=== PATIENT | female | born 1965 | race Caucasian/White ===

== ENCOUNTER 2020-02-24 21:10 | Emergency (ER) | payer OTHER ==
[~2020-02-24] VITALS: Ht 175.3 cm; Wt 63.5 kg
[2020-02-24] MEDS ORDERED: ASPIRIN81 MG PO (21:23)
[2020-02-24] MEDS ORDERED: AMITRIPTYLINE100 MG PO (21:24)
--- NOTE | 2020-02-25 06:25 | EKG ---
[facility] [address] [place], [place] [address] Signed Sinus tachycardia Left bundle branch block Abnormal ECG No previous ECGs available Confirmed by ROBBIE YEUNG MD ([id number]) on 02/25/2020 6:25:40 AM Electronically Signed By: ROBBIE YEUNG MD 02/25/20624 PATIENT NAME: MAHESH KELLY [place] Electrocardiogram DATE OF : 65 PHYSICIAN: ROBBIE YEUNG MD REPORT #: [id number] REPORT IS CONFIDENTIAL AND NOT TO BE RELEASED WITHOUT AUTHORIZATION
== END 2020-02-25 01:15 | disposition home or self-care (01) ==
LOC: ED 21:10
DX: R07.9 Chest pain, unspecified (principal); F17.200 Nicotine dependence, unspecified, uncomplicated; Z88.8 Allergy status to other drugs, medicaments and biological substances; Z79.899 Other long term (current) drug therapy; Z79.82 Long term (current) use of aspirin
CPT/HCPCS: 71045; 71260; 80053; 81001; 83605; 83735; 84484; 85025; 93005; 93010; 96361; 99285-25; J2270; J2405; J7030; Q9967

== ENCOUNTER 2020-04-21 14:56 | Emergency (ER) | payer OTHER ==
[~2020-04-21] VITALS: Ht 175.3 cm; Wt 63.5 kg
--- OUTSIDE RECORDS SUMMARY | ~2020-04-21 | XMS | Encounter Summary ---
Demographics + + + | Address | [address] | | | [place] [address] | + + + | Home Phone | | + + + | Preferred Language | Unknown | + + + | Marital Status | | + + + | Voodoo Affiliation | Unknown | + + + | Race | White | + + + | Ethnic Group | Not or | + + + Author + + + | Author | [facility] | | | and [place] | + + + | Organization | [facility] | | | and [place] | + + + | Address | Unknown | + + + | Phone | Unavailable | + + + Support + + + + + | Name | Relationship | Address | Phone | + + + + + | Shayan Monique | ECON | [place], [place] | | + + + + + Care Team Providers + +------+ + | Care Chef Head Name | Role | Phone | + +------+ + | Alejandra Mcfarland MD | PCP | | + +------+ + Encounter Details +--------+ + + + + | Date | Type | Department | Care Team | Description | +--------+ + + + + | 04/01/ | Abstract | [facility] | Provider, | | | 2019 | | [address] | [address] | | | | | [address] | [address] | | | | | [place], [place] | [place] [address] | | | | | [address] | | | | | | [phone] | | | +--------+ + + + + Social History + + + +--------+------+ | Tobacco Use | Types | Packs/Day | Years | Date | | | | | Used | | + + + +--------+------+ | Current Every Day | Cigarettes | 0.5 | 35 | | | Smoker | | | | | + + + +--------+------+ + +---+---+---+ | Smokeless Tobacco: | | | | | Never Used | | | | + +---+---+---+ + + +---------+ + | Alcohol Use | Drinks/Week | oz/Week | Comments | + + +---------+ + | Yes | | | | + + +---------+ + + + + | Sex Assigned at | Date Recorded | | | | + + + | Not on file | | + + + documented as of this encounter Plan of Treatment +--------+---------+ + + + | Date | Type | Specialty | Care Team | Description | +--------+---------+ + + + | 05/24/ | Office | Neurosurgery | Shayan Varner | | | 2019 | Visit | | MD [address] | | | | | | [address] | | | | | | [place] | | | | | | [id number] | | | | | | | | +--------+---------+ + + + documented as of this encounter Visit Diagnoses Not on filedocumented in this encounter"
--- OUTSIDE RECORDS SUMMARY | ~2020-04-21 | XMS | Encounter Summary ---
Demographics + + + | Address | [address] | | | [place] [address] | + + + | Home Phone | | + + + | Preferred Language | Unknown | + + + | Marital Status | | + + + | Quaker Affiliation | Unknown | + + + | Race | White | + + + | Ethnic Group | Not or | + + + Author + + + | Author | [facility] | | | and [place] | + + + | Organization | [facility] | | | and [place] | + + + | Address | Unknown | + + + | Phone | Unavailable | + + + Support + + + + + | Name | Relationship | Address | Phone | + + + + + | Shayan Monique | ECON | [place] | | + + + + + Care Team Providers + +------+ + | Care Product Designer Name | Role | Phone | + +------+ + | Alejandra Mcfarland MD | PCP | | + +------+ + Reason for Visit + +--------+ + | Reason | Onset | Comments | | | Date | | + +--------+ + | Appointment | 04/19/ | | | | 2020 | | + +--------+ + Encounter Details +--------+ + + + + | Date | Type | Department | Care Team | Description | +--------+ + + + + | 04/19/ | Telephone | [facility] | Shayan Varner | Appointment | | 2019 | | [address] | [address] | | | | | [address] | [address] | | | | | [place], [place] | [place] | | | | | [address] | [address] | | | | | [phone] | | | +--------+ + + + [...] + + documented as of this encounter Miscellaneous Notes Telephone Encounter - Karla Haley - 04/19/2020 11:55 AM PDTLVM requesting a call back to reschedule her appointment on 04/21/20Electronically signed by Karla Haley at 2019 11:56 AM PDTdocumented in this encounter Plan of Treatment +--------+---------+ + [...] [place] | | | | | | [id number] | | | | | | | | +--------+---------+ + + + documented as of this encounter Visit Diagnoses Not on filedocumented in this encounter"
--- OUTSIDE RECORDS SUMMARY | ~2020-04-21 | XMS | Encounter Summary ---
Demographics + + + | Address | [address] | | | [place] [address] | + + + | Home Phone | | + + + | Preferred Language | Unknown | + + + | Marital Status | | + + + | Anabaptism Affiliation | Unknown | + + + | Race | White | + + + | Ethnic Group | Not or | + + + Author + + + | Author | [facility] | | | and [place] | + + + | Organization | [facility] | | | [...] Team Providers + +------+ + | Care Equity Analyst Name | Role | Phone | + +------+ + | Alejandra Mcfarland MD | PCP | | + +------+ + Encounter Details +--------+ + + + + | Date | Type | Department | Care Team | Description | +--------+ + + + + | 03/30/ | Imaging | [facility] | Provider, | | | 2020 | Exam | MED [facility] EXTER[facility] | [address] | | | | | IM[address]ING [address] | | | | | [address] | [place] [address] | | | | | [place] [address] | | | | | | [phone] | | | +--------+ + + + + Social History + +-------+ +--------+------+ | Tobacco Use | Types | Packs/Day | Years | Date | | | | | Used | | + +-------+ +--------+------+ | Never Assessed | | | | | + +-------+ +--------+------+ + + + | Sex Assigned at [...] [place] | | | | | | [address] | | | | | | | | +--------+---------+ + + + documented as of this encounter Procedures + +--------+ + + + | Procedure Name | Priori | Date/Time | Associated Diagnosis | Comments | | | ty | | | | + +--------+ + + + | CT LUMBAR SPINE WO | Routin | 10/13/2019 | | Results for this | | CONTRAST | e | 12:10 AM | | procedure are in the | | | | PST | | results section. | + +--------+ + + + documented in this encounter Results CT Lumbar Spine wo Contrast (10/13/2019 12:10 AM PST) + + | Specimen | + + | | + + + + + | Narrative | Performed At | + + + | External films for comparison only | [facility] | | | | | No results will be in the chart. | | + + + + +---------+ + + | Performing | Address | City/State/Zipcode | Phone Number | | Organization | | | | + +---------+ + + | [facility] | | | | + +---------+ + + documented in this encounter Visit Diagnoses Not on filedocumented in this encounter"
--- OUTSIDE RECORDS SUMMARY | ~2020-04-21 | XMS | Encounter Summary ---
Demographics + + + | Address | [address] | | | [place] [address] | + + + | Home Phone | | + + + | Preferred Language | Unknown | + + + | Marital Status | | + + + | Islam Affiliation | Unknown | + + + | Race | White | + + + | Ethnic Group | Not or | + + + Author + + + | Author | [facility] | | | and [place] | + + + | Organization | [facility] | | | and [...] Team Providers + +------+ + | Care Vacuum Tester Cans Name | Role | Phone | + [...] | MED CTR EXTERNAL | [address] | | | | | IMAGING [address] | | | | | [address] | [place] [address] | | | | | [place] [address] | | | | | | [phone] | | | +--------+ + + + [...] [place] | | | | | | [address] | | | | | | | | +--------+---------+ + + + documented as of this encounter Procedures + +--------+ + + + | Procedure Name | Priori | Date/Time | Associated Diagnosis | Comments | | | ty | | | | + +--------+ + + + | CT THORACIC SPINE WO | Routin | 10/13/2019 | | Results for this | | CONTRAST | e | 12:05 AM | | procedure are in the | | | | PST | | results section. | + +--------+ + + + documented in this encounter Results CT Thoracic Spine wo Contrast (10/13/2019 12:05 AM PST) + + | Specimen | [...]
--- OUTSIDE RECORDS SUMMARY | ~2020-04-21 | XMS | Encounter Summary ---
Demographics + + + | Address | [address] | | | [place] [address] | + + + | Home Phone | | + + + | Preferred Language | Unknown | + + + | Marital Status | | + + + | Hindu Affiliation | Unknown | + + + | Race | White | + + + | Ethnic Group | Not or | + + + Author + + + | Author | [facility] | | | and [place] | + + + | Organization | [facility] | | | [...] Team Providers + +------+ + | Care Metal Spraying Machine Operator Name | Role | Phone | + +------+ + | Alejandra Mcfarland MD | PCP | | + +------+ + Encounter Details +--------+ + + + + | Date | Type | Department | Care Team | Description | +--------+ + + + + | 03/29/ | Imaging | [facility] | Provider, | | | 2020 | Exam | MED CTR EXTERNAL | [address] | | | | | IM[address]ING [address] | | | | | [address] | [place] [address] | | | | | [place] [address] | | | | | | [phone] | | | +--------+ + + + [...] [place] | | | | | | [address] | | | | | | | | +--------+---------+ + + + documented as of this encounter Procedures + +--------+ + + + | Procedure Name | Priori | Date/Time | Associated Diagnosis | Comments | | | ty | | | | + +--------+ + + + | XR LUMBAR SPINE 2 OR | Routin | 03/15/2020 | | Results for this | | 3 VW | e | 12:00 AM | | procedure are in the | | | | PDT | | results section. | + +--------+ + + + documented in this encounter Results XR Lumbar Spine 2 or 3 Vw (03/15/2020 12:00 AM PDT) + + | Specimen | + + [...]
--- OUTSIDE RECORDS SUMMARY | ~2020-04-21 | XMS | Encounter Summary ---
Demographics + + + | Address | [address] | | | [place] [address] | + + + | Home Phone | | + + + | Preferred Language | Unknown | + + + | Marital Status | | + + + | Synagogue Affiliation | Unknown | + + + | Race | White | + + + | Ethnic Group | Not or | + + + Author + + + | Author | [facility] | | | and [place] | + + + | Organization | [facility] | | | [...] Team Providers + +------+ + | Care Gas Derrick Operator Name | Role | Phone | [...] | MED CTR EXTERNAL | [address] | | | | | IMAGING [address] | | | | | [address] | [place] [address] | | | | | [place] [address] | | | | | | [phone] | | | +--------+ + + + [...] [place] | | | | | | [address] | | | | | | | | +--------+---------+ + + + documented as of this encounter Procedures + +--------+ + + + | Procedure Name | Priori | Date/Time | Associated Diagnosis | Comments | | | ty | | | | + +--------+ + + + | CT PELVIS WO | Routin | 10/13/2019 | | Results for this | | CONTRAST | e | 12:15 AM | | procedure are in the | | | | PST | | results section. | + +--------+ + + + documented in this encounter Results CT Pelvis wo Contrast (10/13/2019 12:15 AM PST) + + | Specimen | [...]
--- OUTSIDE RECORDS SUMMARY | ~2020-04-21 | XMS | Clinical Summary ---
Demographics + + + | Address | [address] [place] [address] B | | | [place] [address] | + + + | Home Phone | | + + + | Preferred Language | Unknown | + + + | Marital Status | | + + + | Orthodox Affiliation | Unknown | + + + | Race | White | + + + | Ethnic Group | Not or | + + + Author + + + | Author | [facility] | | | and [place] | + + + | Organization | [facility] | | [...] Team Providers + +------+ + | Care Guide Visitor Name | Role | Phone | + +------+ + | Alejandra Mcfarland MD | PCP | | + +------+ + Allergies + + + + + + | Active Allergy | Reactions | Severity | Noted | Comments | | | | | Date | | + + + + + + | Meperidine | Unknown | Low | 10/13/19 | | | | | | 20 | | + + + + + + | Statins | Anaphylaxis, Unknown | High | 10/13/19 | | | | | | 20 | | + + + + + + | Uncoded | Unknown | Low | 10/13/19 | | | Nonscreenable | | | 20 | | | Allergen | | | | | + + + + + + Medications + + + +---------+------+------+-------+ | Medication | Sig | Dispensed | Refills | Star | End | Statu | | | | | | t | Date | s | | | | | | Date | | | + + + +---------+------+------+-------+ | amitriptyline | Take 100 mg by mouth | | 0 | 06/0 | 06/0 | Activ | | (ELAVIL) 100 MG | nightly As needed | | | 4/20 | 4/20 | e | | tablet | for sleep. | | | 20 | 21 | | + + + +---------+------+------+-------+ | | Take 5 mg by mouth | | 0 | 07/1 | | Activ | | HYDROcodone-acetamin | every 6 hours as | | | 3/20 | | e | | ophen (NORCO) 5-325 | needed. | | | 20 | | | | mg per tablet | | | | | | | + + + +---------+------+------+-------+ | rOPINIRole | Take 0.25 mg by | | 0 | 06/2 | | Activ | | (REQUIP) 0.25 mg | mouth 2 times daily. | | | 4/20 | | e | | tablet | | | | 20 | | | + + + +---------+------+------+-------+ Active Problems Not on file Encounters +--------+ + + + + | Date | Type | Specialty | Care Team | Description | +--------+ + + + + | 04/19/ | Telephone | Neurosurgery | Shayan Varner | Appointment | | 2019 | | | MD [address] | | +--------+ + + + + | 04/01/ | Abstract | Neurosurgery | Gerard, | | 2019 | | | MD Reymundo | | +--------+ + + + + | 03/29/ | Imaging | Radiology | Provider, | | 2019 | Exam | | MD Reymundo | | +--------+ + + + + from Last 3 Months Family History + + +------+ + | Medical History | Relation | Name | Comments | + + +------+ + | No known problems | Father | | | + + +------+ + | No known problems | Maternal | | | | | Grandfath | | | | | er | | | + + +------+ + | No known problems | Maternal | | | | | Grandmoth | | | | | er | | | + + +------+ + | No known problems | Mother | | | + + +------+ + | No known problems | Paternal | | | | | Grandfath | | | | | er | | | + + +------+ + | No known problems | Paternal | | | | | Grandmoth | | | | | er | | | + + +------+ + + +------+--------+ + | Relation | Name | Status | Comments | + +------+--------+ + | Father | | | | + +------+--------+ + | Maternal Grandfather | | | | + +------+--------+ + | Maternal Grandmother | | | | + +------+--------+ + | Mother | | | | + +------+--------+ + | Paternal Grandfather | | | | + +------+--------+ + | Paternal Grandmother | | | | + +------+--------+ + Social History + + + +--------+------+ [...] on file | | + + + Last Filed Vital Signs Not on file Plan of Treatment +--------+---------+ + + + | Date | Type | Specialty | Care Team | Description | +--------+---------+ + + + | 05/24/ | Office | Neurosurgery | Shayan Varner | | | 2020 | Visit | | MD [address] | | | | | | [address] [facility] [address] [address] | | | | | | [place] | | | | | | [address] | | | | | | | | +--------+---------+ + + + + + + + + | Health Maintenance | Due Date | Last | Comments | | | | Done | | + + + + + | Hepatitis C | | | | | Screening | 5 | | | + + + + + | Vaccine: | | | | | Pneumococcal 19-64 | 1 | | | | (1 of 1 - PPSV23) | | | | + + + + + | Cervical Cancer | | | | | Screening (Pap) | 5 | | | + + + + + | Breast Cancer | | | | | Screening | 0 | | | + + + + + | Colorectal Cancer | | 06/16/19 | | | Screening | 5 | 65 | | | (Colonoscopy) | | | | + + + + + | Vaccine: Zoster (1 | | | | | of 2) | 5 | | | + + + + + | Vaccine: Influenza | | | | | (#1) | 0 | | | + + + + + | Vaccine: | | 09/02/20 | | | Dtap/Tdap/Td (2 - | 0 | 10, | | | Td) | | 12/30/19 | | | | | 07 | | + + + + + Procedures + +--------+ + + + | [...] section. | + +--------+ + + + from Last 3 Months Results XR Lumbar Spine 2 or 3 [...] | | | + +---------+ + + from Last 3 Months Insurance + +--------+ +--------+ +---------+--------+ | Payer | Benefi | Subscriber | Effect | Phone | Address | Type | | | t Plan | ID | carloz | | | | | | / | | Dates | | | | | | Group | | | | | | + +--------+ +--------+ +---------+--------+ | [employer] | [employer] | [id number] | | [phone] | | Medica | | MEDICAID HMO | HEALTH | | 020-Pr | 1 | | id | | | MDCD | | esent | | | | | | [place] | | | | | | + +--------+ +--------+ +---------+--------+ + +--------+ +--------+ + + | Guarantor Name | Accoun | Relation to | Date | Phone | Billing Address | | | t Type | Patient | of | | | | | | | | | | + +--------+ +--------+ + + | Avery Monique | Person | Self [birth year] | [address] | | [place] | al/Fam | | 1965 | [phone] | [place] | | | [place] | | | [address] (Home) | [address] | + +--------+ +--------+ + + Advance Directives + + + + + | Type | Date Recorded | Patient | 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
--- OUTSIDE RECORDS SUMMARY | ~2020-04-21 | XMS | Encounter Summary ---
Demographics + + + | Address | [address] [facility] [address] [address] | | | [place] [address] | + + + | Home Phone | | + + + | Preferred Language | Unknown | + + + | Marital Status | | + + + | Cheondoism Affiliation | Unknown | + + + | Race | White | + + + | Ethnic Group | Not or | + + + Author + + + | Author | [facility] | | | and [place] | + + + | Organization | [facility] | | [...] Team Providers + +------+ + | Care Card Room Manager Name | Role | Phone | + [...] | MED CTR EXTERNAL | MD [address] | | | | | IMAGING [address] | | | | | [address] | [place] [address] | | | | | [place] [address] | | | | | | [phone] | | | +--------+ + + + [...] [place] | | | | | | [address] | | | | | | | | +--------+---------+ + + + documented as of this encounter Procedures + +--------+ + + + | Procedure Name | Priori | Date/Time | Associated Diagnosis | Comments | | | ty | | | | + +--------+ + + + | CT CERVICAL SPINE WO | Routin | 10/13/2019 | | Results for this | | CONTRAST | e | 12:00 AM | | procedure are in the | | | | PST | | results section. | + +--------+ + + + documented in this encounter Results CT Cervical Spine wo Contrast (10/13/2019 12:00 AM PST) + + | Specimen | [...]
[~2020-04-21 14:56] MED LIST: AMITRIPTYLINE100 MG PO; ASPIRIN81 MG PO
--- OUTSIDE RECORDS SUMMARY | 2020-04-21 15:00 | XMS ---
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 Yariel has no Care Guidelines for this patient. Adonis VISIT COUNT (12 MO.) 2 [facility] TOTAL 2 NOTE: Visits indicate total known visits. ED/C VISIT TRACKING (12 MO.) 04/21/2020 14:58 [facility] [place] TYPE: Emergency COMPLAINT: - R EYE PROBLEM 02/24/2020 21:11 [facility] [place] TYPE: Emergency COMPLAINT: - SOB DIAGNOSES: - Chest pain, unspecified - remote computer terminal operator (current) use of aspirin - Allergy status to other drugs, medicaments and biological sub - Nicotine dependence, unspecified, uncomplicated - Other senior care (current) drug therapy - Dizziness and giddiness INPATIENT VISIT TRACKING (12 MO.) No inpatient visits to display in this time frame [email or web address]
[2020-04-21] MEDS ORDERED: NORCO 5-325 TA1 EACH PO (15:21)
[2020-04-21] MEDS ORDERED: VENTOLIN HFA18 GM (15:22)
== END 2020-04-21 17:48 | disposition short-term general hospital (02) ==
LOC: ED 14:56
DX: H54.61 Unqualified visual loss, right eye, normal vision left eye (principal); F17.200 Nicotine dependence, unspecified, uncomplicated; Z88.8 Allergy status to other drugs, medicaments and biological substances; Z79.82 Long term (current) use of aspirin
CPT/HCPCS: 99284